=== PATIENT | male | born 1935 | race Caucasian/White ===

== ENCOUNTER 2019-02-06 21:33 | Observation (INO) | payer SELFPAY ==
[~2019-02-06] VITALS: Ht 177.8 cm; Wt 82.6 kg
[2019-02-06] MEDS ORDERED: FISH OIL 1,0001 EAC1 PO (22:08)
[2019-02-06] MEDS ORDERED: DAILY VALUE1 EACH PO (22:11)
[2019-02-06] MEDS ORDERED: PANT40 PO (22:11)
[2019-02-06] MEDS ORDERED: SIMV40 PO (22:11)
[2019-02-06 22:12] LABS: BASOPHILS ABSOLUTE AUTO 0.05 K/mm3 (0.00-0.23); BASOPHILS PERCENT AUTO 0 % (0-2); EOSINOPHILS ABSOLUTE AUTO 0.19 K/mm3 (0.00-0.68); EOSINOPHILS PERCENT AUTO 2 % (0-6); Hemoglobin 12.7 g/dL (13.5-17.5); IMMATURE GRAN ABSOLUTE AUTO 0.06 K/mm3 (0.00-0.10); IMMATURE GRAN PERCENT AUTO 1 % (0-1); LYMPHOCYTES ABSOLUTE AUTO 0.95 K/mm3 (0.84-5.20); LYMPHOCYTES PERCENT AUTO 8 % (21-46); MONOCYTES ABSOLUTE AUTO 0.84 K/mm3 (0.16-1.47); MONOCYTES PERCENT AUTO 7 % (4-13); Mean Corpuscular HGB 32.4 pg (26.0-34.0); Mean Corpuscular HGB Conc 32.6 g/dL (31.5-36.5); Mean Corpuscular Volume 100 fL (80-100); Mean Platelet Volume 9.8 fL (9.1-12.4); NEUTROPHILS ABSOLUTE AUTO 10.66 K/mm3 (1.96-9.15); NEUTROPHILS PERCENT AUTO 84 % (41-73); Platelet Count 203 K/mm3 (150-400); RDW Coefficient Variation 12.2 % (11.7-14.2); Red Blood Cell Count 3.92 M/mm3 (4.30-5.90); White Blood Cell Count 12.75 K/mm3 (4.00-11.30)
[2019-02-06] MEDS ORDERED: ASPI81CH PO (22:12)
[2019-02-06] MEDS ORDERED: LISI20 PO (22:12)
[2019-02-06 22:26] LABS: Alanine Aminotransfer (ALT/SGP 32 U/L (12-78); Albumin, Blood 3.7 g/dL (3.4-5.0); Albumin/Globulin Ratio 1.1 (0.8-1.8); Alk Phos 102 U/L (50-136); Anion Gap 7 mmol/L (6-16); Aspartate Aminotrans (AST/SGOT 28 U/L (12-37); Bilirubin, Total 0.4 mg/dL (0.1-1.0); Blood Urea Nitrogen 29 mg/dL (8-24); Bun/Creatinine Ratio 25.7 (12.0-20.0); CO2, Blood 25 mmol/L (21-32); Calcium, Blood 8.4 mg/dL (8.5-10.1); Chloride, Blood 109 mmol/L (98-108); Creatinine, Blood 1.13 mg/dL (0.60-1.20); Globulin, Blood 3.5 g/dL (2.2-4.0); Glomerular Filtration Rate >60 (60-); Glucose, Blood 118 mg/dL (70-99); Potassium, Blood 4.3 mmol/L (3.5-5.5); Sodium, Blood 141 mmol/L (136-145); Total Protein, Blood 7.2 g/dL (6.4-8.2); Troponin I <0.015 ng/mL (0.000-0.040)
[2019-02-07] MEDS ORDERED: CALCIUM 500 +1 EAC3 PO (00:33)
[2019-02-07 05:07] LABS: Hematocrit 35.4 % (37.0-53.0); Hemoglobin 11.4 g/dL (13.5-17.5); Mean Corpuscular HGB 32.4 pg (26.0-34.0); Mean Corpuscular HGB Conc 32.2 g/dL (31.5-36.5); Mean Corpuscular Volume 101 fL (80-100); Mean Platelet Volume 9.9 fL (9.1-12.4); Platelet Count 176 K/mm3 (150-400); RDW Coefficient Variation 12.3 % (11.7-14.2); RDW Standard Deviation 45.3 fL (35.1-46.3); Red Blood Cell Count 3.52 M/mm3 (4.30-5.90); White Blood Cell Count 9.36 K/mm3 (4.00-11.30)
--- NOTE | 2019-02-07 05:33 | NUR ---
*SHIFT SUMMARY* PATIENT CAME TO ROOM VIA STRETCHER FROM ER. PT WAS ABLE TO STAND AND PIVOT TO BED WITH 1 ASSIST. PT DID HAVE PAIN IN LEFT HAMSTRING AREA WITH THIS MOVEMENT. PT STATED HE HAD SOME CP BUT IT WAS FROM FALLING ON IT. PT ON ROOM AIR, VITAL SIGNS WNL. PATIENT STATED HE WAS TIRED, HOWEVER PATIENT DID NOT GET MUCH REST THROUGHOUT THE NIGHT. LAB CAME TO DRAW BLOOD THIS AM AND AFTER PATIENT REPORTED HE FELT LIKE HE COULDN'T STOP SHAKING. NO REPORTS OF SOB, OR CHEST PAIN. HOWEVER WHEN THE HOB WAS ELEVATED FOR PT TO TAKE MORNING PILLS PT BEGAN TO CRY OUT IN PAIN THAT IT HURT. ANOTHER EKG WAS DONE. PT STATES HE FEELS THOUGH THE PAIN IS RELATED TO THE FALL AND NOT A HEART ATTACK. CHARGE DID AN EKG ORDERED. NO CHANGES NOTED IN EKG. MEDICATED PT FOR PAIN AND GIVEN A WARM BLANKET. CALL LIGHT IN REACH AND EDUCATED PT THE IMPORTANCE TO NOTIFY STAFF IF CP CONTINUED OR SOB STARTED. PT VERBALIZED UNDERSTANDING. VITALS WERE ALSO OBTAINED DURING THAT TIME AND WERE STABLE. TELE ON, PEANUT SALTER REPORTED NSR AT 69.
[2019-02-07 05:34] LABS: Anion Gap 5 mmol/L (6-16); Blood Urea Nitrogen 26 mg/dL (8-24); Bun/Creatinine Ratio 26.5 (12.0-20.0); CO2, Blood 26 mmol/L (21-32); Calcium, Blood 7.9 mg/dL (8.5-10.1); Chloride, Blood 111 mmol/L (98-108); Creatinine, Blood 0.98 mg/dL (0.60-1.20); Glomerular Filtration Rate >60 (60-); Glucose, Blood 117 mg/dL (70-99); Potassium, Blood 4.4 mmol/L (3.5-5.5); Sodium, Blood 142 mmol/L (136-145)
--- NOTE | 2019-02-07 17:39 | NUR ---
SHIFT SUMMARY PATIENT PLEASANT, ALERT AND ORIENTED. AWAITING PT EVAL IN THE MORNING. WILL ASSESS FOR ANY CHANGES. NO ACUTE CONCERNS AT THIS TIME.
--- NOTE | 2019-02-08 05:16 | NUR ---
*SHIFT SUMMARY* PATIENT IS ALERT AND ORIENTED. PATIENT SLEPT FOR THE FIRST COUPLE HOURS OF SHIFT AND HAD NO COMPLAINTS OF CP OR SOB. PT STATES THAT HIS CHEST ONLY HURTS WHEN HE COUGHS OR SOMETHING TOUCHES HIS CHEST. HE STATES HE HAS LEFT LEG PAIN IN HIS THIGH AND IS CONCERNED ABOUT IT SINCE THEY HAVE NOT DONE ANY IMAGING AND HE ISN'T ABLE TO BARE WEIGHT TO IT. PT SLEPT WELL THROUGHOUT THE NIGHT. VITAL SIGNS STABLE. NO NEW CHANGES
--- NOTE | 2019-02-08 18:28 | NUR ---
SHIFT SUMMARY: NO ACUTE CHANGES TO REPORT THIS SHIFT. PT A&O; CALM AND COOPERATIVE WITH CARE. PT STATES PAIN IS TOLERABLE-NO PAIN MEDICATIONS REQUESTED. NO C/O NAUSEA THIS SHIFT. PAIN IN HAMSTRING-AREA OF LEFT LEG; PT EVAL & TREAT THIS SHIFT; PATIENT REMAINS PAINFUL & NON-WEIGHT BEARING; X-RAY OF FEMUR THIS SHIFT REVEALS NO FX. TELE IN PLACE; SR @ 95 THIS AM SHIFT ASSESSMENT; PATIENT HISTORICALLY HAS BEEN SR IN 60s-70s. WCTM.
--- NOTE | 2019-02-09 04:21 | NUR ---
*SHIFT SUMMARY* PT IS ALERT AND ORIENTED AND ON ROOM AIR. ASKED PATIENT ABOUT HIS PAIN. HE STATES THAT HE DOES NOT HURT UNLESS HE MOVES TOO MUCH. PT DENIED NEED FOR PAIN PILL. NEED URINE SAMPLE. PT DOES USES URINAL. USES CALL LIGHT APPROPRIATELY. SLEPT WELL THROUGHOUT THE NIGHT. PM VITALS STABLE.
[2019-02-09 04:52] LABS: Source, Urine Clean Catch
[2019-02-09 04:54] LABS: Appearance, Urine Clear (Clear); Bilirubin, Urine Neg (Neg); Blood, Urine 1+ (Neg); Color, Urine Yellow (P-Yellow); Glucose Qualitative, Urine Neg (Neg); Ketones, Urine Neg (Neg); Leukocyte Esterase, Urine Neg (Neg); Nitrite, Urine Neg (Neg); Protein, Urine Neg (Neg); Urobilinogen, Urine NORM (Normal)
[2019-02-09 05:26] LABS: Bacteria Few /hpf; Red Blood Cells, Urine 0-2 /hpf (0-2); Squamous Epithelial Cells Not Seen /hpf (Few); White Blood Cells, Urine 0-2 /hpf (0-5)
[2019-02-09 05:29] LABS: Uric Acid Crystals Mod /hpf
[2019-02-09 05:36] LABS: BASOPHILS ABSOLUTE AUTO 0.04 K/mm3 (0.00-0.23); BASOPHILS PERCENT AUTO 0 % (0-2); EOSINOPHILS ABSOLUTE AUTO 0.33 K/mm3 (0.00-0.68); EOSINOPHILS PERCENT AUTO 3 % (0-6); Hematocrit 35.4 % (37.0-53.0); Hemoglobin 11.4 g/dL (13.5-17.5); IMMATURE GRAN ABSOLUTE AUTO 0.04 K/mm3 (0.00-0.10); IMMATURE GRAN PERCENT AUTO 0 % (0-1); LYMPHOCYTES ABSOLUTE AUTO 0.93 K/mm3 (0.84-5.20); LYMPHOCYTES PERCENT AUTO 9 % (21-46); MONOCYTES ABSOLUTE AUTO 1.23 K/mm3 (0.16-1.47); MONOCYTES PERCENT AUTO 12 % (4-13); Mean Corpuscular HGB 31.8 pg (26.0-34.0); Mean Corpuscular HGB Conc 32.2 g/dL (31.5-36.5); Mean Corpuscular Volume 99 fL (80-100); Mean Platelet Volume 10.1 fL (9.1-12.4); NEUTROPHILS PERCENT AUTO 74 % (41-73); Platelet Count 180 K/mm3 (150-400); RDW Coefficient Variation 12.2 % (11.7-14.2); RDW Standard Deviation 44.2 fL (35.1-46.3); Red Blood Cell Count 3.59 M/mm3 (4.30-5.90); White Blood Cell Count 9.97 K/mm3 (4.00-11.30)
[2019-02-09 06:10] LABS: Anion Gap 7 mmol/L (6-16); Blood Urea Nitrogen 22 mg/dL (8-24); Bun/Creatinine Ratio 18.8 (12.0-20.0); CO2, Blood 28 mmol/L (21-32); Calcium, Blood 8.8 mg/dL (8.5-10.1); Chloride, Blood 105 mmol/L (98-108); Creatinine, Blood 1.17 mg/dL (0.60-1.20); Glomerular Filtration Rate >60 (60-); Glucose, Blood 111 mg/dL (70-99); Potassium, Blood 4.5 mmol/L (3.5-5.5); Sodium, Blood 140 mmol/L (136-145)
--- NOTE | 2019-02-09 18:27 | NUR ---
SHIFT SUMMARY: NO ACUTE CHANGES TO REPORT THIS SHIFT. PT A&O; CALM AND COOPERATIVE WITH CARE. MEDICATED FOR PAIN PER EMAR. PAIN CONTINUING IN LLE; ULTRASOUND TODAY-POSSIBLE HEMATOMA IN LLE; DR DOWNEY CONSULTED THIS SHIFT. ANGIE.
--- NOTE | 2019-02-10 06:32 | NUR ---
*SHIFT SUMMARY* PT IS ALERT AND ORIENTED. USES CALL LIGHT APPROPRIATELY. COMPLAINS OF PAIN IN CHEST FROM HIS FALL AND IN LEFT LEG. PT ON TELE. USES URINAL. SLEPT WELL. VITAL SIGNS STABLE. NO NEW CHANGES IN STATUS.
--- NOTE | 2019-02-10 09:07 | NUR ---
pt gav permission to assist in cre on 02/10/2019.
[2019-02-10] MEDS ORDERED: ACET325 PO (17:43)
[2019-02-10] MEDS ORDERED: IBUP400 PO (17:44)
[2019-02-10] MEDS ORDERED: Senna Plus Tab1 EACH PO (17:44)
[2019-02-10] MEDS ORDERED: CYCL10 PO (17:44)
[2019-02-10] MEDS ORDERED: ONDA4ODT MM (17:45)
[2019-02-10] MEDS ORDERED: Percocet 5-3251 EACH PO (17:45)
--- NOTE | 2019-02-10 18:22 | NUR ---
PT DISCHARGED THE PT AND FAMILY VERBALIZED UNDERSTANDING OF THE DC INSTRUCTIONS, [facility], THE PT WAS GIVEN A HARD COPY PERSCRIPTION FOR PAIN MEDICATION, THE PT APPEARED TO BE BREATHING EASILY ON RA, THE PT WAS TRANSFERED VIA WHEELCHAIR ACCOMPANIED BY THE CHARGE NURSE AND HIS FAMILY
== END 2019-02-10 18:28 | disposition home health service (06) ==
LOC: ER 21:33 → MEDS 21:40
PROVIDERS: Emergency Medicine; Family Medicine; Nurse Practitioner Acute Care; ADMIT Internal Medicine
DX: R07.89 Other chest pain (principal); S70.12XA Contusion of left thigh, initial encounter; I10 Essential (primary) hypertension; E78.5 Hyperlipidemia, unspecified; D72.829 Elevated white blood cell count, unspecified; Z79.82 Long term (current) use of aspirin; Z79.899 Other long term (current) drug therapy; Z88.1 Allergy status to other antibiotic agents; Z88.2 Allergy status to sulfonamides; W01.0XXA Fall on same level from slipping, tripping and stumbling without subsequent striking against object, initial encounter; Y92.096 Garden or yard of other non-institutional residence as the place of occurrence of the external cause
CPT/HCPCS: 36415; 71046; 73552; 76882; 80048; 80053; 81001; 83880; 84484; 85025; 85027; 93005; 93010; 93306; 97110; 97116; 97162; 97530; 99285-25; J1885; J7030

== ENCOUNTER 2024-03-18 13:52 | Observation (INO) | payer OTHER ==
[~2024-03-18] VITALS: Ht 177.8 cm; Wt 81.7 kg
[2024-03-18 20:30] VITALS: BP 106/93
== END 2024-03-18 22:40 | disposition home or self-care (01) ==
LOC: ER 13:52 → SURS 13:53
PROVIDERS: ADMIT Internal Medicine Gastroenterology
PROC: 0DB58ZX Excision of Esophagus, Via Natural or Artificial Opening Endoscopic, Diagnostic (ICD-10-PCS; principal; 2024-03-18)
PROC: 0DC58ZZ Extirpation of Matter from Esophagus, Via Natural or Artificial Opening Endoscopic (ICD-10-PCS; principal; 2024-03-18)
DX: T18.128A Food in esophagus causing other injury, initial encounter (principal); K20.90 Esophagitis, unspecified without bleeding; K22.89 Other specified disease of esophagus; K44.9 Diaphragmatic hernia without obstruction or gangrene; K26.9 Duodenal ulcer, unspecified as acute or chronic, without hemorrhage or perforation; I10 Essential (primary) hypertension; E78.5 Hyperlipidemia, unspecified; I25.10 Atherosclerotic heart disease of native coronary artery without angina pectoris; Z95.5 Presence of coronary angioplasty implant and graft; Z87.891 Personal history of nicotine dependence; Z66 Do not resuscitate; Z88.1 Allergy status to other antibiotic agents; Z88.8 Allergy status to other drugs, medicaments and biological substances; Z79.82 Long term (current) use of aspirin; Z79.899 Other long term (current) drug therapy

== ENCOUNTER 2024-11-03 13:17 | Emergency (ER) | payer SELFPAY ==
[~2024-11-03] VITALS: Ht 177.8 cm; Wt 78.5 kg
[~2024-11-03 13:17] MED LIST: ACET325 PO; AMLO5 PO; ASPI81CH PO; BRILINTA90 M1 PO; CALCIUM 500 +1 EAC3 PO; CREON DR 24,001 EACH PO; CYCL10 PO; DAILY VALUE1 EACH PO; FISH OIL 1,0001 EAC1 PO; IBUP400 PO; LISI20 PO; LOPE2C PO; MEGE40T PO; METO25ER PO; OMEGA-3 FISH O1 EAC6 PO; ONDA4ODT MM; PANT40 PO; Percocet 5-3251 EACH PO; SIMV40 PO; Senna Plus Tab1 EACH PO; VIT1CAPS12 PO
[2024-11-03] MEDS ORDERED: Glucagon 1 MG/KIT VIAL IM ONE (14:20)
[2024-11-03] MEDS ORDERED: Glucagon, Human Recombinant 1 MG/Vial IM ONE (14:25)
[2024-11-03 14:50] VITALS: BP 113/69
== END 2024-11-03 14:50 | disposition home or self-care (01) ==
LOC: ER 13:17
DX: K56.609 Unspecified intestinal obstruction, unspecified as to partial versus complete obstruction (principal); I10 Essential (primary) hypertension; E78.5 Hyperlipidemia, unspecified; Z87.891 Personal history of nicotine dependence; Z79.899 Other long term (current) drug therapy; Z88.1 Allergy status to other antibiotic agents; Z88.8 Allergy status to other drugs, medicaments and biological substances
CPT/HCPCS: 99283; J1610